=== PATIENT | male | born 1995 | race Caucasian/White ===

== ENCOUNTER 2018-05-27 11:01 | Emergency (ER) | payer OTHER ==
[~2018-05-27] VITALS: Ht 175.3 cm; Wt 89.3 kg
[2018-05-27] MEDS ORDERED: ONDANSETRON ODT 4 MG PO ONE (11:30)
--- NOTE | 2018-05-27 12:19 | NUR ---
TO ROOM FROM LOBBY. NAD.
[2018-05-27] MEDS ORDERED: ONDANSETRON ODT 4 MG ONE (12:47)
--- NOTE | 2018-05-27 12:52 | NUR ---
MEDICATED FOR NAUSEA. STILL AWAITING MD ASSESSMENT AND FURTHER ORDERS
[2018-05-27 12:57] LABS: BASOPHILS % (AUTO) 0 % (0-1); EOSINOPHILS % (AUTO) 1 % (1-7); LYMPHOCYTES # (AUTO) 0.53 x10^3/uL (1-3.4); LYMPHOCYTES % (AUTO) 6 % (22-44); MD NO; MEAN CORPUSCULAR HEMOGLOBIN 32.2 pg (27.5-34.5); MEAN CORPUSCULAR HGB CONC 34.5 g/dL (33.2-36.2); MEAN CORPUSCULAR VOLUME 93.5 fL (81-97); MEAN PLATELET VOLUME 8.1 fL (7.4-10.4); MONOCYTES # (AUTO) 0.56 x10^3/uL (0.2-0.8); MONOCYTES % (AUTO) 7 % (2-9); NEUTROPHILS # (AUTO) 7.08 x10^3/uL (1.8-6.8); NEUTROPHILS % (AUTO) 86 % (42-75); PLATELET COUNT 313 x10^3/uL (130-400); RED CELL DISTRIBUTION WIDTH 12.6 % (9.4-14.8)
[2018-05-27 13:07] LABS: ALBUMIN 4.1 g/dL (3.4-5.0); ANION GAP 5 mmol/L (5-15); CALCIUM 9.1 mg/dL (8.5-10.1); CHLORIDE 108 mmol/L (98-107)
[2018-05-27 13:11] LABS: ALANINE AMINOTRANSFERASE 52 U/L (12-78); ALKALINE PHOSPHATASE 84 U/L (45-117); BILIRUBIN,TOTAL 0.4 mg/dL (0.2-1.0); CREATININE 1.49 mg/dL (0.7-1.3)
--- NOTE | 2018-05-27 13:47 | NUR ---
AT BEDSIDE FOR ASSESSMENT
[2018-05-27] MEDS ORDERED: SODIUM CHLORIDE 0.9%, 500ML IVBOLUS ONE (14:00)
[2018-05-27 14:03] VITALS: BP 132/60
--- NOTE | 2018-05-27 14:03 | NUR ---
ORDERS RECEIVED, FLUIDS STARTED AND LABS COLLECTED. PT STATES 10/23 MD CYRUS UPDATED.
[2018-05-27] MEDS ORDERED: HYDROcodone/APAP 5/325 TABLET ONE (14:14)
[2018-05-27] MEDS ORDERED: MAALOX/HYOSCYAMINE/LIDOCAINE 45 ML BTL ONE (14:15)
--- NOTE | 2018-05-27 14:19 | NUR ---
PT MEDICATED FOR PAIN PER MAR. AWAITING MONO SCREEN
--- NOTE | 2018-05-27 14:27 | NUR ---
ALL RESULTS BACK AT THIS TIME, CHART UP FOR RECHECK
[2018-05-27] MEDS ORDERED: HYDROcodone/APAP 5/325 TABLET PO ONE (14:30)
[2018-05-27] MEDS ORDERED: MAALOX/HYOSCYAMINE/LIDOCAINE 45 ML BTL PO ONE (14:30)
== END 2018-05-27 15:03 | disposition home or self-care (01) ==
LOC: ED 13:39
DX: R10.11 Right upper quadrant pain (principal); K22.6 Gastro-esophageal laceration-hemorrhage syndrome
CPT/HCPCS: 36415; 76700; 80053; 83690; 85025; 86308; 99284; J7040; Q0162